=== PATIENT | female | born 1945 | race Caucasian/White ===

== ENCOUNTER 2019-08-12 07:22 | Day surgery (SDC) | payer OTHER ==
[~2019-08-12] VITALS: Ht 152.4 cm; Wt 72.1 kg
[2019-08-12] MEDS ORDERED: MIDAZOLAM 2 MG/2 ML VIAL ONE (09:47)
[2019-08-12] MEDS ORDERED: LIDOCAINE 2% 100 MG/5 ML UJET TP ONE (09:48)
[2019-08-12] MEDS ORDERED: fentaNYL 0.05 MG/ML VIAL ONE (09:48)
[2019-08-12] MEDS ORDERED: fentaNYL 0.05 MG/ML VIAL IVP ONE (11:05)
== END 2019-08-12 10:41 | disposition home or self-care (01) ==
LOC: MDS 07:22 → MMU 07:23 → MDS 10:41
PROVIDERS: ATTEND Internal Medicine Gastroenterology
DX: R19.5 Other fecal abnormalities (principal); D12.3 Benign neoplasm of transverse colon; E03.9 Hypothyroidism, unspecified; I10 Essential (primary) hypertension; Z90.710 Acquired absence of both cervix and uterus; E66.9 Obesity, unspecified; Z68.32 Body mass index [BMI] 32.0-32.9, adult; Z79.899 Other long term (current) drug therapy
CPT/HCPCS: 45385; J3010; J2250